=== PATIENT | female | born 1955 | race Caucasian/White ===

== ENCOUNTER 2018-06-08 09:46 | Emergency (ER) | payer OTHER ==
[2018-06-08] MEDS: LIDOCAINE 4% CR TOP (11:08)
[2018-06-08] MEDS: LIDOCAINE 1% (MDV) 10 ML INJ INFIL (11:08)
== END 2018-06-08 12:42 | disposition home or self-care (01) ==
LOC: FTE 09:46
DX: K64.4 Residual hemorrhoidal skin tags (principal); I10 Essential (primary) hypertension
CPT/HCPCS: 46083; 99284-25